=== PATIENT | female | born 1975 | race Caucasian/White ===

== ENCOUNTER 2018-01-16 11:23 | Emergency (ER) | payer SELFPAY ==
--- NOTE | 2018-01-16 12:53 | Emergency Department Report ---
HPI - General Chief Complaint: Anxiety Time Seen by Provider: 01/16/18 12:32 - HPI HPI: Room 10 The patient is a 42-year-old female presenting with chief complaint of bizarre behavior. The patient's children states that in the patient witnessed some murder of her in November. Family states nearly every other day. Patient is pacing around in the house early in the morning speaking very loudly. The patient refuses to provide further history to me. Location: Mental state Duration: 2 months Quality: Anxious Severity: Moderate Modifying factors: [see above] Context: [see above] Mode of transportation: [not driving] ED Past Medical Hx - Past Medical History Hx Psychiatric Treatment: Yes (anxiety) - Surgical History Past Surgical History?: No - Family History Family history: no significant - Social History Smoking Status: Never Smoker Substance Use Type: None (denies illicit drug use) ED Review of Systems ROS: Stated complaint: ANXIETY Other details as noted in HPI Comment: Unobtainable due to pts medical conditions Physical Exam - Physical Exam Physical Exam: GENERAL: The patient is well-developed well-nourished female lying on stretcher clutching her purse over her chest intentionally not making eye contact or speak. [] HEENT: Normocephalic. Atraumatic. NECK: Trachea midline CHEST/LUNGS: There is no respiratory distress noted. ABDOMEN: There is no abdominal distention. SKIN: There is no diaphoresis. NEURO: The patient is awake and alert. The patient is not cooperative. The patient has no focal neurologic deficits. The patient has normal speech ( patient said the word "no" clearly) MUSCULOSKELETAL: There is no evidence of acute injury. ED Course - Consultations Consultation #1: 01/16/18 Discussed with mental health employee relations consultant (her) patient will not discuss her issues with him. Patient has not exhibited any behavior that warrants a 1013/ and patient behavior at this time ED Medical Decision Making - Differential Diagnosis PTSD, conversion disorder, adjustment disorder, grief Critical care attestation.: If time is entered above; I have spent that time in minutes in the direct care of this critically ill patient, excluding procedure time. ED Disposition Clinical Impression: Complicated grieving Disposition: Z-07 ELOPED Is pt being admited?: No Does the pt Need Aspirin: No Condition: Undetermined
== END 2018-01-16 14:10 | disposition left against medical advice (07) ==
LOC: ED 11:23
DX: F43.21 Adjustment disorder with depressed mood (principal); F41.9 Anxiety disorder, unspecified